=== PATIENT | female | born 1960 | race Caucasian/White ===

== ENCOUNTER 2016-11-27 13:03 | Observation (INO) | payer BC ==
[~2016-11-27] VITALS: Ht 162.6 cm; Wt 65.8 kg
--- NOTE | ~2016-11-27 | HP ---
Unit #: [id number] #: [id number] Patient: RAMIREZ BREAUX [id number] [address] [place], [place] [address] [id number] I MR#: [id number] NAME: RAMIREZ BREAUX. ROOM: 55880 Age: 56 Sex: F Admission Date: 11/27/2016 : 1960 Attending Physician: Sky Coe M.D. Primary Care Physician: Miles Colin M.D. HISTORY AND PHYSICAL CHIEF COMPLAINT Overdose. HISTORY OF PRESENT ILLNESS The patient is a 56-year-old female with a history of hypertension, status post gastric bypass surgery, likely COPD, brought to the emergency room overdosed on Percocet and Ativan. The patient is more lethargic and unable to provide any history and the history is obtained by reviewing the records and speaking with the ER physician. Patient took unknown amount of the Percocet and lorazepam. The EMS was called in by her . The patient had a prolonged note for the suicidal attempt on five to six pages. The patient has been going though the personal problems with the upcoming divorce from her . The patient complains of the back pain and complains of the headache. The patient is responding to verbal stimuli but not completely. No further history is available. PAST MEDICAL HISTORY History of COPD, hypertension, chronic back pain secondary to DJD, status post back surgery. PAST SURGICAL HISTORY Tonsillectomy, gastric bypass, cholecystectomy, rotator cuff repair, lumbar fusion with the instrumentation, bilateral cataract surgery. HOME MEDICATION Ativan and Percocet. ALLERGIES Bactrim and codeine. SOCIAL HISTORY Smokes a pack per day and denies any alcohol or any illicit drug abuse. FAMILY HISTORY Reviewed and none. REVIEW OF SYMPTOMS Unable to obtain as the patient is more lethargic and unable to provide any history. PHYSICAL EXAMINATION GENERAL APPEARANCE: On examination the patient is lying on a bed not in acute distress. Unit #: [id number] #: [id number] Patient: RAMIREZ BREAUX VITAL SIGNS: Temperature 98.2, pulse 73, respiratory rate 14, blood pressure 103/70, sating 98% at room air. HEENT: Head atraumatic/normocephalic. Pupils equal, round and reacting to light and accommodation. Extraocular movements are intact. Dry mucous membrane. NECK: Supple. LUNGS: Decreased air entry at the bases. HEART: Regular rate and rhythm. ABDOMEN: Soft, positive bowel sounds. EXTREMITIES: No cyanosis. No clubbing. NEUROLOGIC: Patient is lethargic and no gross focal motor deficit and moves the extremities intermittently. PSYCHIATRIC: Unable to assess. DIAGNOSTIC STUDIES LABORATORY DATA: WBC 4.2, hemoglobin 10.7, hematocrit 31.7, platelet is 171. Urine drug screen is positive for the benzodiazepines and opiates. Sodium 142, potassium 4.0, chloride 116, bicarb 22, glucose 101, BUN 12, creatinine 0.8, calcium 8.2, AST 25, ALT 20, alkaline phosphatase 71, lipase 25, glucose 109, acetaminophen is 54 and alcohol less than 5, salicylate less than 4, acetaminophen previously it was 138. CARDIOVASCULAR: The EKG shows normal sinus rhythm. ASSESSMENT 1. Altered mental status, likely secondary to suicidal attempt. 2. Hypertension. 3. Polysubstance abuse. PLAN Plan to admit the patient to the observation with the telemetry. Will have the psych evaluation and continue the sitter 1:1 and [facility] once patient is stable and avoid the narcotics and repeat the labs again in the morning, CBC, BMP and further recommendations will follow. Dictated by Nitish Cardoso/roddy TD: 11/27/2016 19:29 JOB #: [id number] HISTORY AND PHYSICAL Page 1 of 1 X SKY COE MD X HISTORY AND PHYSICAL
--- NOTE | ~2016-11-27 | EKG ---
PATIENT: RAMIREZ BREAUX UNIT #: [id number] Ventricular Rate: 73 BPM Atrial Rate: 73 BPM P-R Interval: 130 ms QRS Duration: 76 ms Q-T Interval: 420 ms QTC Calculation(Bezet): 462 ms P Loami: 68 degrees Calculated R Loami: 18 degrees Calculated T Loami: 17 degrees Diagnosis Line: Normal sinus rhythm Diagnosis Line: Normal ECG Diagnosis Line: When compared with ECG of 28-JUL-2010 06:08, Diagnosis Line: No significant change was found Diagnosis Line: Confirmed by FABIEN GAINES MD ([id number]) on 11/27/2016 Diagnosis Line: 10:15:57 PM INTERPRETING MD: EDER MAYEN
--- NOTE | ~2016-11-27 | DS ---
Unit #: [id number] #: [id number] Patient: RAMIREZ BREAUX [id number] [address] [address] [id number] I MR#: [id number] NAME: RAMIREZ BREAUX. ROOM: 323 Age: 56 Sex: F Admission Date: 11/27/2016 : 1960 Discharge Date: 11/28/2016 Attending Physician: Marbella Gonzalez M.D. Primary Care Physician: Miles Colin M.D. DISCHARGE SUMMARY PRINCIPAL DIAGNOSES 1. Benzodiazepine and Percocet overdose in suicide attempt. 2. Severe depression with suicide attempt. 3. Acute Tylenol intoxication with pending repeat Tylenol level. 4. Chronic back pain. 5. Nonanion gap metabolic acidosis. 6. Normocytic anemia. OPHTHALMIC TECHNICIAN APPRENTICE Dr. Lundberg of psychiatry. PROCEDURE None. CLINICAL HISTORY AND HOSPITAL COURSE Ms. Breaux is a 56-year-old female, who was brought to the emergency department after family found her down and unresponsive at home. Patient had left a several page suicide note. In the emergency department, she was significantly lethargic and was found to have a Tylenol level of 138 initially. Alcohol and salicylates were negative. Patient had repeat Tylenol level done in three and a half hours. It was down to 54. She was placed in observation for evaluation. Patient this morning is awake after holding sedating medications. She still states "I have nothing to live for." She is severely depressed and also complaining of her chronic back pain. I am awaiting a followup liver function panel and Tylenol level this morning but assuming that these are normal, patient is medically stable and would best be served [facility] I will note she remains on a 72-hour hold at this time. Anticipate [facility] later today. DISCHARGE CONDITION Stable. DISCHARGE STATUS [facility] DISCHARGE MEDICATIONS Ibuprofen 800 mg p.o. t.i.d. p.r.n. for pain. DISCHARGE INSTRUCTIONS 1. The patient was instructed to follow a heart healthy diet. 2. She can increase her activity as tolerated. 3. Followup per psychiatry at [facility]. Unit #: [id number] #: [id number] Patient: RAMIREZ BREAUX 4. Patient should follow up with Dr. Colin upon discharge from that facility. Dictated by... Marbella Gonzalez M.D. ILANA/lilibeth TD: 11/28/2016 11:23 JOB #: [id number] DISCHARGE SUMMARY Page 1 of 1 X Marbella Gonzalez MD X DISCHARGE SUMMARY
--- NOTE | ~2016-11-27 | CO ---
Unit #: [id number] #: [id number] Patient: RAMIREZ BREAUX [id number] [facility] [address] [facility]. [place], [place] [address] [id number] I MR#: [id number] NAME: RAMIREZ BREAUX ROOM: 323 Age: 56 Sex: F Admission Date: 11/27/2016 : 1960 Attending Physician: Marbella Gonzalez M.D. Primary Care Physician: Miles Colin M.D. Consultation Date: 11/28/2016 CONSULTATION REPORT REASON FOR CONSULTATION Overdose in a suicide attempt. HISTORY OF PRESENT ILLNESS Ms. Ye is a 56-year-old female, seen in room 323 bed 1 on 11/28/2016 at [facility] after overdose. The patient dressed casually in hospital attire, lying comfortably in bed. The patient has a sitter at the bedside. Answered questions in short sentences. The patient is still reporting having suicidal ideation, unable to contract for safety. Denied any psychotic symptom or any use of any drugs or alcohol. The patient's vital signs; temperature 98.6, pulse 82, 16, oxygen saturation 99%, blood pressure 154/96. PAST PSYCHIATRIC HISTORY Remarkable for history of depression. No history of any previous treatment. MEDICAL HISTORY History of COPD, hypertension, chronic back pain, degenerative joint disease, history of back surgeries. MEDICATIONS HISTORY The patient is on Percocet and Ativan. ALLERGIES To Bactrim and codeine. FAMILY HISTORY AND SOCIAL HISTORY The patient reports that she has a good support system. No history of abuse. Denied any use of any alcohol or any illicit drugs. MENTAL STATUS EXAMINATION General appearance; the patient dressed in hospital attire, lying comfortably in bed. Attention span and concentration, poor. Speech, slow in volume. Oriented in place and person. Mood and affect; sad and depressed. Thought process, coherent. Thought content, the patient reported having suicidal ideation, suicide attempt, guarded, paranoid. Recent and remote memory, fair to slightly impaired. Language, fair. Fund of knowledge, fair. Insight and judgment, fair to slightly impaired. DIAGNOSES Major depressive disorder, recurrent, severe, F33.2. ASSESSMENT AND PLAN Unit #: [id number] #: [id number] Patient: RAMIREZ BREAUX 1. Supportive psychotherapy and psychoeducation provided to the patient. 2. Educated about benefits and side effects of medication and course and prognosis of illness. Advised to stop all medication at this time. 3. [facility] the patient is medically stable. Advised to continue with one-to-one monitoring and 72-hour hold. Please feel free to call if any questions telephone #[phone]. Dictated by... Nitish Cardona/lin TD: 11/28/2016 18:44 JOB #: [id number] CONSULTATION REPORT Page 1 of 1 X Mark Anthony Lundberg MD X CONSULTATION REPORT
[~2016-11-27 13:03] MED LIST: ATIVAN PO; ATIVAN0.5 MG PO; BUSPAR PO; CIPRO250 MG PO; COMBIVENT INH; DYAZIDE 37.5/251 CAP PO; DYAZIDE 371 CAP 37.5 PO; FLEXERIL10 MG PO; HYDROCODON-ACE1 EAC5 PO; IBUPROFEN PO; LORAZEPAM0.5 MG PO; LORTAB 10/500 T1 TAB PO; LORTAB 101 TAB 10/5 PO; LOTREL; METHYLPRED PO; NORVASC10 MG PO; OPANA ER20 MG PO; OPANA10 MG PO; OXYCODONE HCL10 MG PO; PAXIL PO; PERCOCET 10/3251 TAB PO; RESTORIL15 MG PO; TEMAZEPAM PO; TOPAMAX PO; TOPAMAX25 MG PO; VICODIN 5/500 T1 TAB PO; VITAMIN B122500 MCG PO; ZOFRAN ODT4 MG PO; [UNRECOGNIZED DRUG - REMARK] PO
[2016-11-27 14:07] LABS: BASOPHIL% 0.7 % (0-2.5); EOSINOPHIL% 1.1 % (0.0-7.0); HEMATOCRIT 31.6 % (35.0-45.0); HEMOGLOBIN 10.7 gm/dL (12.0-16.0); LYMPHOCYTE# 0.9 X10e3 (1.0-3.5); LYMPHOCYTE% 21.6 % (17.0-45.0); MEAN CELL VOLUME 90.8 FL (83-96); MEAN CORPUSCULAR HEMOGLOBIN 30.8 PG (28-34); MEAN CORPUSCULAR HGB CONC 33.9 g/dL (30-36); MONOCYTE# 0.4 X10e3 (0-1.0); NEUTROPHIL# 2.8 X10e3 (1.5-7.1); NEUTROPHIL% 66.6 % (40-75); PLATELET COUNT 171 X10e3 (140-420); RED BLOOD COUNT 3.47 X10e (3.90-5.30); RED CELL DISTRIBUTION WIDTH 17.7 % (11.0-15.5); WHITE BLOOD COUNT 4.2 X10e3 (4.0-10.5)
[2016-11-27 14:09] LABS: DIFF IND NO
[2016-11-27 14:30] LABS: AMPHETAMINE NEG (NEG); BARBITURATES NEG (NEG); BENZODIAZEPINES POS (NEG); COCAINE NEG (NEG); MARIJUANA NEG (NEG); OPIATES POS (NEG); TRICYCLIC ANTIDEPRESSANTS NEG (NEG); U METHADONE NEG (NEG)
[2016-11-27 14:37] LABS: ACETAMINOPHEN 138 ug/mL; ALBUMIN SERUM 3.6 g/dL (3.5-5.0); ALCOHOL BLOOD <5 mg/dL (0); ALKALINE PHOSPHATASE 71 U/L (32-92); ALT (SGPT) 20 U/L (10-40); AST (SGOT) 25 U/L (10-42); BILIRUBIN,TOTAL 0.3 mg/dL (0.2-2.0); BLOOD UREA NITROGEN 12 mg/dL (9-23); CALCIUM SERUM 8.2 mg/dL (8.4-10.2); CARBON DIOXIDE 22 mmol/L (22-31); CHLORIDE 116 mmol/L (100-111); CREATININE SERUM 0.8 mg/dL (0.6-1.4); GLOM FILT RATE Estimated 83.1 mL/min (>60); GLUCOSE FASTING 101 mg/dL (70-110); LIPASE 25 U/L (22-51); SALICYLATE <4.0 mg/dL; SODIUM 142 mmol/L (135-145)
[2016-11-27] MEDS ORDERED: ATIVAN0.5 M1 PO (18:03)
[2016-11-27] MEDS ORDERED: PERCOCET5/325 PO (18:04)
[2016-11-28] MEDS ORDERED: PAXIL CR PO (02:24)
[2016-11-28] MEDS ORDERED: TOPAMAX200 MG PO (02:24)
[2016-11-28] MEDS ORDERED: LORAZEPAM1 MG PO (02:59)
[2016-11-28] MEDS ORDERED: PERCOCET10 PO (02:59)
[2016-11-28] MEDS ORDERED: FLEXERIL PO (03:00)
[2016-11-28 04:54] LABS: HEMATOCRIT 29.9 % (35.0-45.0); HEMOGLOBIN 9.9 gm/dL (12.0-16.0); MEAN CELL VOLUME 91.2 FL (83-96); MEAN CORPUSCULAR HEMOGLOBIN 30.2 PG (28-34); MEAN CORPUSCULAR HGB CONC 33.1 g/dL (30-36); MEAN PLATELET VOLUME 9.1 FL (6.5-11.5); RED BLOOD COUNT 3.28 X10e (3.90-5.30); RED CELL DISTRIBUTION WIDTH 17.7 % (11.0-15.5); WHITE BLOOD COUNT 5.4 X10e3 (4.0-10.5)
[2016-11-28 07:27] LABS: BUN/CREATININE RATIO 12.22; CALCIUM SERUM 7.7 mg/dL (8.4-10.2); CREATININE SERUM 0.9 mg/dL (0.6-1.4); POTASSIUM 3.5 mmol/L (3.5-5.1)
[2016-11-28 12:13] LABS: ACETAMINOPHEN <10 ug/mL; ALBUMIN SERUM 3.1 g/dL (3.5-5.0); ALKALINE PHOSPHATASE 71 U/L (32-92); ALT (SGPT) 47 U/L (10-40); AST (SGOT) 80 U/L (10-42); BILIRUBIN, DIRECT 0.1 mg/dL (0.0-0.2); BILIRUBIN,INDIRECT 0.3 mg/dL (0.0-0.9); BILIRUBIN,TOTAL 0.4 mg/dL (0.2-2.0); PROTEIN TOTAL SERUM 5.1 g/dL (6.0-8.3)
== END 2016-11-28 19:43 | DRG 918 ==
LOC: CED 13:03 → CEDOF 18:20 → C3A PCU 18:52 → CED 18:52 → C3A PCU 11-28 02:09 → CEDOF 11-28 02:09 → C3A PCU 11-28 07:50
PROVIDERS: Emergency Medicine; Internal Medicine
DX: T42.4X2A Poisoning by benzodiazepines, intentional self-harm, initial encounter (principal); T39.1X2A Poisoning by 4-Aminophenol derivatives, intentional self-harm, initial encounter; T39.1X5A Adverse effect of 4-Aminophenol derivatives, initial encounter; F32.9 Major depressive disorder, single episode, unspecified; G89.29 Other chronic pain; M54.9 Dorsalgia, unspecified; D64.9 Anemia, unspecified; E87.2 Acidosis; I10 Essential (primary) hypertension; Z88.1 Allergy status to other antibiotic agents; Z88.5 Allergy status to narcotic agent; Z79.891 Long term (current) use of opiate analgesic; Z79.1 Long term (current) use of non-steroidal anti-inflammatories (NSAID); F17.210 Nicotine dependence, cigarettes, uncomplicated; Z98.1 Arthrodesis status; Z98.84 Bariatric surgery status; Z90.49 Acquired absence of other specified parts of digestive tract; Z98.41 Cataract extraction status, right eye; Z98.42 Cataract extraction status, left eye; Z98.890 Other specified postprocedural states
CPT/HCPCS: 51702; 80048; 80053; 80076; 80307; 82947; 83690; 85025; 85027; 93005; 96361; 96372; 96374; 99285; G0378; G0480; J1650; J2310

== ENCOUNTER 2016-11-28 11:00 | Inpatient (IN) | payer BC ==
[~2016-11-28] VITALS: Ht 160 cm; Wt 65.8 kg
--- NOTE | ~2016-11-28 | PN ---
Unit #: [id number] #: [id number] Patient: CASSI BREAUX [id number] [facility] [address] [place] [address] [id number] I MR#: [id number] NAME: CASSI BREAUX. ROOM: [facility] Age: 56 Sex: F Admission Date: 11/28/2016 : 1960 Attending Physician: Mark Anthony uLndberg M.D. Admitting Physician: Mark Anthony Lundberg M.D. Primary Care Physician: Nitish Poon PROGRESS NOTES DATE 11/30/2016 DISCUSSION Ms. Cassi Breaux is a 56-year-old female, seen on 11/30/2016. The patient interviewed, chart reviewed, and obtained information from the nursing staff. The patient reports medication is helping her, denied any thoughts of harming self or others, participating in program. REVIEW OF SYSTEMS Complete review of systems unremarkable. MENTAL STATUS EXAMINATION General appearance: Patient dressed casually. Attention span and concentration, fair. Oriented in time, place, and person. Mood and affect, labile. Speech, monotone. Thought process, concrete. The patient denied any thoughts of harming self or others or any psychotic symptoms. Recent and remote memory, poor. Insight and judgment, poor. DIAGNOSIS Major depressive disorder, recurrent, severe. ASSESSMENT/PLAN Advised to continue with the current medication and therapeutic protocol, and if needed consider further adjustment of medication. Dictated by... Nitish Cardona/amaya TD: 12/01/2016 05:02 JOB #: [id number] Unit #: [id number] #: [id number] Patient: CASSI BREAUX PROGRESS NOTES Page 1 of 1 X Mark Anthony Lundberg MD PROGRESS NOTE
--- NOTE | ~2016-11-28 | HP ---
Unit #: [id number] #: [id number] Patient: CASSI BREAUX [id number] [facility] [address] [place] [address] [id number] MR#: [id number] NAME: CASSI BREAUX. ROOM: P207 Age: 56 Sex: F Admission Date: 11/28/2016 : 1960 Attending Physician: Mark Anthony Lundberg M.D. Admitting Physician: Mark Anthony Lundberg M.D. Primary Care Physician: Miles Colin M.D. HISTORY AND PHYSICAL HISTORY OF PRESENT ILLNESS Cassi is a 56 year old admitted to [address] [place] [address] with depression and after an overdose of benzodiazepines and opioids. She was admitted to [facility] on 11/27/2016 for the overdose. When medically stable, she was transferred to [facility] for psychiatric care. The patient was seen and H and P dated 11/27/2016 from [facility] was reviewed. This is current. No changes. Please see H and P dated 11/27/2016. Dictated by... Aaliyah Paz P.A.-C. for Nitish Preston/darron TD: 11/29/2016 12:18 JOB #: [id number] HISTORY AND PHYSICAL Page 1 of 1 X Aaliyah Paz HISTORY AND PHYSICAL
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
--- NOTE | ~2016-11-28 | DS ---
Unit #: [id number] #: [id number] Patient: RAMIREZ BREAUX [id number] [facility] [address] [place] [address] [id number] MR#: [id number] NAME: RAMIREZ BREAUX. ROOM: [facility] Age: 56 Sex: F Admission Date: 11/28/2016 : 1960 Discharge Date: 12/01/2016 Attending Physician: Mark Anthony Lundberg M.D. Primary Care Physician: Miles Colin M.D. DISCHARGE SUMMARY REASON FOR ADMISSION Overdose, depression. DIAGNOSTIC STUDIES LABORATORY DATA: Unremarkable. HOSPITAL COURSE The patient was admitted to the inpatient unit on 72 hour hold, admitted on 11/28/2016 and discharged on 12/01/2016. Patient was treated with group therapy, individual therapy, medication management. Patient was responsive to treatment, showed improvement and subsequently patient was discharged with a plan to follow up in outpatient program. DISCHARGE DIAGNOSES PSYCHIATRIC: 1. Major depressive disorder, recurrent, severe, F33.2. 2. Anxiety disorder NOS, F40.01. SECONDARY DIAGNOSES 1. Chronic back pain. 2. Normocytic anemia. STRESSORS: Psychosocial stressor. FOLLOWUP CARE Patient to followup in outpatient clinic as per social media community manager. DISCHARGE MEDICATIONS 1. Vistaril 25 mg t.i.d. for anxiety. 2. Celexa 20 mg daily for depression. CONDITION AT DISCHARGE Patient pleasant and cooperative. Denied any psychotic symptoms or any suicidal ideation. PROGNOSIS Guarded. DIET AND ACTIVITY As tolerated. Unit #: [id number] #: [id number] Patient: RAMIREZ BREAUX Dictated by... Nitish Cardona/will TD: 12/02/2016 21:40 JOB #: [id number] DISCHARGE SUMMARY Page 1 of 1 X Mark Anthony Lundberg MD X DISCHARGE SUMMARY
[~2016-11-28 11:00] MED LIST changes: +ATIVAN0.5 M1 PO; +FLEXERIL PO; +LORAZEPAM1 MG PO; +PAXIL CR PO; +PERCOCET10 PO; +PERCOCET5/325 PO; +TOPAMAX200 MG PO
== END 2016-12-01 11:22 | disposition home or self-care (01) | DRG 885 ==
LOC: P2S 19:59
DX: F33.2 Major depressive disorder, recurrent severe without psychotic features (principal); R45.851 Suicidal ideations; T40.2X2D Poisoning by other opioids, intentional self-harm, subsequent encounter; T42.4X2D Poisoning by benzodiazepines, intentional self-harm, subsequent encounter; F41.9 Anxiety disorder, unspecified